=== PATIENT | male | born 1965 | race African-American/Black ===

== ENCOUNTER → 2018-01-22 | Outpatient (CLI) | payer MEDICARE | END | disposition home or self-care (01) | LOC: RAD 11:07 | PROVIDERS: ATTEND Internal Medicine Nephrology | DX: I51.7 Cardiomegaly (principal) | CPT/HCPCS: 71046 ==

== ENCOUNTER → 2018-10-31 | Outpatient (CLI) | payer MEDICARE, OTHER | END | disposition home or self-care (01) | LOC: RAD 15:03 | PROVIDERS: ATTEND Internal Medicine Nephrology | DX: S22.32XA Fracture of one rib, left side, initial encounter for closed fracture (principal); I51.7 Cardiomegaly; X58.XXXA Exposure to other specified factors, initial encounter; Y93.89 Activity, other specified; Y92.89 Other specified places as the place of occurrence of the external cause; Y99.8 Other external cause status | CPT/HCPCS: 71101; 73060; 73090 ==

== ENCOUNTER 2019-11-19 16:15 | Inpatient (IN) | payer MEDICAID, MEDICARE ==
[~2019-11-19] VITALS: Ht 175.3 cm; Wt 96.4 kg
[2019-11-19] MEDS ORDERED: SODIUM CHLORIDE 0.9% 500 ML IV ONE (17:14)
[2019-11-19] MEDS ORDERED: NITROGLYCERIN OINT 1GM/INCH UDPKT TD ONE (17:15)
[2019-11-19] MEDS ORDERED: ASPIRIN 81MG TABLET PO ONE (17:15)
[2019-11-19 17:38] LABS: EOSINOPHILS % 1.5 % (0.0-5.0); HEMOGLOBIN. 9.5 g/dL (14.0-18.0); LYMPHOCYTES % 21.4 % (20.0-50.0); MEAN CORPUSCULAR HEMOGLOBIN 31.7 pg (28.0-32.0); MEAN CORPUSCULAR VOLUME 93.6 fL (80.0-94.0); MEAN PLATELET VOLUME 7.9 fl (7.4-10.4); MONOCYTES % 8.5 % (2.0-8.0); NEUTROPHILS % 67.6 % (40.0-76.0); PLATELET 305 x1000/uL (130-400); RED BLOOD CELL COUNT 2.99 mill/uL (4.7-6.1); RED CELL DISTRIBUTION WIDTH 17.1 % (11.6-14.6)
[2019-11-19 17:45] LABS: CHLORIDE 96 mEq/L (98-107)
[2019-11-19 17:46] LABS: PROTHROMBIN TIME 10.7 sec (9.6-11.0)
[2019-11-19] MEDS ORDERED: ACETAMINOPHEN 325MG TABLET PO PRN (22:30)
[2019-11-19] MEDS ORDERED: DIPHENHYDRAMINE 50MG/ML VIAL IV PRN (22:30)
[2019-11-19] MEDS ORDERED: GUAIFENESIN 200MG/10ML SUGAR FREE UDC PO PRN (22:30)
[2019-11-19] MEDS ORDERED: ALPRAZOLAM 0.25 MG TABLET PO PRN (22:30)
[2019-11-19] MEDS ORDERED: CLONIDINE 0.1MG TABLET PO PRN (22:30)
[2019-11-19] MEDS ORDERED: FOLI1TAB63 MT (22:45)
[2019-11-19] MEDS ORDERED: OMEP20CA14 MT (22:45)
[2019-11-19] MEDS ORDERED: CARV25TA47 MT (22:45)
[2019-11-19] MEDS ORDERED: ALLO300T2 MT (22:45)
[2019-11-19] MEDS ORDERED: FURO20TA4 MT (22:45)
[2019-11-19] MEDS ORDERED: NIFE20CA MT (22:45)
[2019-11-19] MEDS ORDERED: ZOLP10TA2 PO (22:45)
[2019-11-19] MEDS ORDERED: ATOR10TA69 MT (22:45)
[2019-11-19] MEDS: ENOXAPARIN 30MG/0.3ML SYR SUBCUT SCH (23:13)
[2019-11-20 04:56] LABS: BASOPHILS % 1.5 % (0.0-2.0); EOSINOPHILS % 2.1 % (0.0-5.0); HEMATOCRIT. 25.4 % (42.0-52.0); HEMOGLOBIN. 8.6 g/dL (14.0-18.0); LYMPHOCYTES % 21.4 % (20.0-50.0); MEAN CORPUSCULAR HEMOGLOBIN 31.4 pg (28.0-32.0); MEAN CORPUSCULAR VOLUME 92.9 fL (80.0-94.0); MEAN PLATELET VOLUME 7.5 fl (7.4-10.4); MONOCYTES % 7.5 % (2.0-8.0); NEUTROPHILS % 67.5 % (40.0-76.0); PLATELET 267 x1000/uL (130-400); RED BLOOD CELL COUNT 2.74 mill/uL (4.7-6.1); RED CELL DISTRIBUTION WIDTH 17.3 % (11.6-14.6)
[2019-11-20 05:05] LABS: CHLORIDE 98 mEq/L (98-107)
[2019-11-20 05:16] LABS: CREATINE KINASE 160 IU/L (39-308)
[2019-11-20 05:19] LABS: CREATINE KINASE MB FRACTION 1.2 ng/mL (0.5-3.6)
[2019-11-20 08:30] VITALS: BP 154/90
[2019-11-20] MEDS: OMEPRAZOLE 20MG CAPSULE EXTENDED RELEASE PO SCH (09:41)
[2019-11-20] MEDS: ALLOPURINOL 100 MG TABLET PO SCH (09:41)
[2019-11-20] MEDS: SERTRALINE HCL 50MG TABLET PO SCH (09:42)
[2019-11-20] MEDS: CINACALCET HCL 30MG TABLET PO SCH (09:42)
[2019-11-20] MEDS: NIFEDIPINE XL 30MG TAB PO SCH (09:46)
[2019-11-20] MEDS: CARVEDILOL 12.5MG TABLET PO SCH ×2 (09:47→21:50)
[2019-11-20] MEDS ORDERED: POTASSIUM CHLORIDE 10MEQ TABLET SR PO NR (11:15)
[2019-11-20 12:00] VITALS: BP 160/100
[2019-11-20 16:20] LABS: PHOSPHORUS 4.4 mg/dL (2.5-4.9)
[2019-11-20 16:25] LABS: CREATINE KINASE MB FRACTION 1.7 ng/mL (0.5-3.6)
[2019-11-20 20:00] VITALS: BP 153/93
[2019-11-20] MEDS: ENOXAPARIN 30MG/0.3ML SYR SUBCUT SCH (21:49)
[2019-11-20] MEDS: ATORVASTATIN CALCIUM 10MG TABLET PO SCH (21:50)
[2019-11-21] VITALS: BP 149/85
[2019-11-21] MEDS: ONDANSETRON HCL 4MG/2ML INJ IV PRN ×3 (00:42→22:45)
[2019-11-21 04:00] VITALS: BP 136/78
[2019-11-21] MEDS: OMEPRAZOLE 20MG CAPSULE EXTENDED RELEASE PO SCH (06:35)
[2019-11-21 07:17] LABS: BASOPHILS % 0.9 % (0.0-2.0); EOSINOPHILS % 3.2 % (0.0-5.0); HEMATOCRIT. 25.5 % (42.0-52.0); HEMOGLOBIN. 8.6 g/dL (14.0-18.0); LYMPHOCYTES % 20.5 % (20.0-50.0); MEAN CORPUSCULAR HEMOGLOBIN 31.6 pg (28.0-32.0); MEAN CORPUSCULAR VOLUME 93.6 fL (80.0-94.0); MEAN PLATELET VOLUME 7.9 fl (7.4-10.4); MONOCYTES % 9.9 % (2.0-8.0); NEUTROPHILS % 65.5 % (40.0-76.0); PLATELET 258 x1000/uL (130-400); RED BLOOD CELL COUNT 2.73 mill/uL (4.7-6.1); RED CELL DISTRIBUTION WIDTH 17.5 % (11.6-14.6)
[2019-11-21 08:00] VITALS: BP 150/92
[2019-11-21] MEDS: CARVEDILOL 12.5MG TABLET PO SCH ×2 (08:49→21:05)
[2019-11-21] MEDS: NIFEDIPINE XL 30MG TAB PO SCH (08:50)
[2019-11-21] MEDS: CINACALCET HCL 30MG TABLET PO SCH (08:50)
[2019-11-21] MEDS: SERTRALINE HCL 50MG TABLET PO SCH (08:50)
[2019-11-21] MEDS: ALLOPURINOL 100 MG TABLET PO SCH (08:50)
[2019-11-21] MEDS ORDERED: POTASSIUM CHLORIDE 20MEQ TABLET SR PO SCH (11:00)
[2019-11-21 11:14] LABS: *AMPHETAMINES SCREEN URINE NEGATIVE (NEGATIVE); *BARBITURATES SCREEN URINE NEGATIVE (NEGATIVE); *BENZODIAZEPINES SCREEN URINE NEGATIVE (NEGATIVE)
[2019-11-21 11:16] LABS: *COCAINE SCREEN URINE NEGATIVE (NEGATIVE)
[2019-11-21 11:19] LABS: METHADONE URINE SCREEN NEGATIVE (NEGATIVE); OPIATES URINE SCREEN NEGATIVE (NEGATIVE)
[2019-11-21 11:20] LABS: CANNABINOID URINE SCREEN NEGATIVE (NEGATIVE); PHENCYCLIDINE URINE SCREEN NEGATIVE (NEGATIVE)
[2019-11-21 12:00] VITALS: BP 126/73
[2019-11-21 16:00] VITALS: BP 123/81
[2019-11-21 20:00] VITALS: BP 153/81
[2019-11-21] MEDS: ATORVASTATIN CALCIUM 10MG TABLET PO SCH (21:05)
[2019-11-21] MEDS: ENOXAPARIN 30MG/0.3ML SYR SUBCUT SCH (21:05)
[2019-11-22] VITALS: BP 159/82
[2019-11-22 04:00] VITALS: BP 140/90
[2019-11-22 07:00] LABS: BASOPHILS % 0.8 % (0.0-2.0); EOSINOPHILS % 2.2 % (0.0-5.0); HEMATOCRIT. 25.6 % (42.0-52.0); HEMOGLOBIN. 8.6 g/dL (14.0-18.0); LYMPHOCYTES % 18.2 % (20.0-50.0); MEAN CORPUSCULAR HEMOGLOBIN 31.3 pg (28.0-32.0); MEAN CORPUSCULAR VOLUME 93.7 fL (80.0-94.0); MEAN PLATELET VOLUME 7.7 fl (7.4-10.4); MONOCYTES % 10.6 % (2.0-8.0); NEUTROPHILS % 68.2 % (40.0-76.0); PLATELET 277 x1000/uL (130-400); RED BLOOD CELL COUNT 2.73 mill/uL (4.7-6.1); RED CELL DISTRIBUTION WIDTH 16.9 % (11.6-14.6)
[2019-11-22 08:00] VITALS: BP 138/79
[2019-11-22] MEDS: NIFEDIPINE XL 30MG TAB PO SCH ×2 (09:00→11:44)
[2019-11-22] MEDS: FAMOTIDINE 20MG TABLET PO SCH ×2 (09:00→11:43)
[2019-11-22] MEDS: CINACALCET HCL 30MG TABLET PO SCH ×2 (09:00→11:42)
[2019-11-22] MEDS: SERTRALINE HCL 50MG TABLET PO SCH ×2 (09:00→11:44)
[2019-11-22] MEDS: CARVEDILOL 12.5MG TABLET PO SCH ×3 (09:00→20:59)
[2019-11-22] MEDS: ALLOPURINOL 100 MG TABLET PO SCH ×2 (09:00→11:42)
[2019-11-22] MEDS ORDERED: POTASSIUM CHLORIDE 20MEQ TABLET SR PO NR (09:15)
[2019-11-22 12:00] VITALS: BP 142/92
[2019-11-22] MEDS ORDERED: ALPRAZOLAM 0.5 MG TABLET PO PRN (14:46)
[2019-11-22] MEDS: ONDANSETRON HCL 4MG/2ML INJ IV PRN ×2 (15:55→20:59)
[2019-11-22 16:00] VITALS: BP 144/80
[2019-11-22 20:16] VITALS: BP 139/79
[2019-11-22] MEDS: ATORVASTATIN CALCIUM 10MG TABLET PO SCH (20:59)
[2019-11-22] MEDS ORDERED: [UNRECOGNIZED DRUG - OTHER] HE SCH (21:00)
[2019-11-22] MEDS ORDERED: CEFTAZIDIME PENTAHYDRATE HE SCH (21:00)
[2019-11-22] MEDS ORDERED: VANCOMYCIN HE SCH (21:00)
[2019-11-22] MEDS: ENOXAPARIN 30MG/0.3ML SYR SUBCUT SCH (21:04)
[2019-11-23 00:53] VITALS: BP 133/77
[2019-11-23 04:24] VITALS: BP 146/80
[2019-11-23 07:03] LABS: BASOPHILS % 0.7 % (0.0-2.0); EOSINOPHILS % 2.1 % (0.0-5.0); HEMATOCRIT. 24.9 % (42.0-52.0); HEMOGLOBIN. 8.5 g/dL (14.0-18.0); LYMPHOCYTES % 19.5 % (20.0-50.0); MEAN CORPUSCULAR VOLUME 93.5 fL (80.0-94.0); MEAN PLATELET VOLUME 7.5 fl (7.4-10.4); MONOCYTES % 9.4 % (2.0-8.0); NEUTROPHILS % 68.3 % (40.0-76.0); PLATELET 262 x1000/uL (130-400); RED BLOOD CELL COUNT 2.66 mill/uL (4.7-6.1); RED CELL DISTRIBUTION WIDTH 17.2 % (11.6-14.6)
[2019-11-23 08:33] VITALS: BP 139/81
[2019-11-23] MEDS: NIFEDIPINE XL 30MG TAB PO SCH (09:11)
[2019-11-23] MEDS: SERTRALINE HCL 50MG TABLET PO SCH (09:11)
[2019-11-23] MEDS: ALLOPURINOL 100 MG TABLET PO SCH (09:11)
[2019-11-23] MEDS: CARVEDILOL 12.5MG TABLET PO SCH (09:11)
[2019-11-23] MEDS: CINACALCET HCL 30MG TABLET PO SCH (09:11)
[2019-11-23] MEDS: FAMOTIDINE 20MG TABLET PO SCH (09:11)
[2019-11-23] MEDS ORDERED: POTASSIUM CHLORIDE 20MEQ TABLET SR PO SCH (10:15)
[2019-11-23] MEDS ORDERED: TOPUD PO (11:32)
[2019-11-23] MEDS ORDERED: SERT50TA PO (11:32)
[2019-11-23] MEDS ORDERED: POTA20TA82 PO (11:32)
[2019-11-23 12:00] VITALS: BP 135/70
== END 2019-11-23 14:25 | disposition home or self-care (01) | DRG 371 ==
LOC: ER 16:22 → MICUSO 19:14 → EDBEDREQ 19:37 → EDBEDREQTM 19:37 → 6WST 11-20 07:25
PROVIDERS: ADMIT Family Medicine Adult Medicine; ATTEND Family Medicine Adult Medicine
PROC: 3E1M39Z Irrigation of Peritoneal Cavity using Dialysate, Percutaneous Approach (ICD-10-PCS; principal; 2019-11-22)
DX: K65.9 Peritonitis, unspecified (principal); N18.6 End stage renal disease; I12.0 Hypertensive chronic kidney disease with stage 5 chronic kidney disease or end stage renal disease; E46 Unspecified protein-calorie malnutrition; E87.1 Hypo-osmolality and hyponatremia; I31.3 Pericardial effusion (noninflammatory); E86.0 Dehydration; E87.6 Hypokalemia; D63.1 Anemia in chronic kidney disease; R07.89 Other chest pain; F19.10 Other psychoactive substance abuse, uncomplicated; G47.00 Insomnia, unspecified; F41.9 Anxiety disorder, unspecified; M10.9 Gout, unspecified; Z99.2 Dependence on renal dialysis; Z82.49 Family history of ischemic heart disease and other diseases of the circulatory system; Z91.19 Patient's noncompliance with other medical treatment and regimen; Z79.899 Other long term (current) drug therapy
CPT/HCPCS: 36415; 71045; 80048; 80053; 80061; 80305; 82550; 82553; 83540; 83550; 83735; 83880; 84100; 84484; 85025; 93005; 93306; 93970; 99285; J0713; J1650; J2405; J3370; J7040

== ENCOUNTER 2024-05-02 14:09 | Emergency (ER) | payer MEDICARE ==
[~2024-05-02] VITALS: Ht 175.3 cm; Wt 89.8 kg
[~2024-05-02 14:09] MED LIST: ALLO300T2 MT; ATOR10TA69 MT; CARV25TA47 MT; FOLI1TAB63 MT; FURO20TA4 MT; NIFE20CA8 MT; OMEP20CA14 MT; POTA-204 PO; SERT50TA PO; TOPUD PO
[2024-05-02 14:15] VITALS: O2SAT 99
[2024-05-02 14:23] VITALS: BP 121/75; PULSE 74; RESP 18; TEMP 99.5; O2SAT 100
[2024-05-02 15:13] LABS: EOSINOPHILS % 3.9 % (0.0-5.0); HEMATOCRIT. 23.6 % (42.0-52.0); HEMOGLOBIN. 8.3 g/dL (14.0-18.0); LYMPHOCYTES % 13.5 % (20.0-50.0); MEAN CORPUSCULAR HEMOGLOBIN 34.3 pg (28.0-32.0); MEAN CORPUSCULAR HGB CONC 35.2 g/dL (31.0-37.0); MEAN CORPUSCULAR VOLUME 97.3 fL (80.0-94.0); MEAN PLATELET VOLUME 7.2 fl (7.4-10.4); MONOCYTES % 5.2 % (2.0-8.0); NEUTROPHILS % 76.4 % (40.0-76.0); PLATELET 337 x1000/uL (130-400); RED BLOOD CELL COUNT 2.43 mill/uL (4.7-6.1); RED CELL DISTRIBUTION WIDTH 13.6 % (11.6-14.6); WHITE BLOOD COUNT 8.2 x1000/uL (4.5-11.0)
[2024-05-02 15:15] LABS: POTASSIUM 3.7 mEq/L (3.5-5.1)
[2024-05-02 15:17] LABS: CALCIUM 10.1 mg/dL (8.7-10.4)
[2024-05-02 15:22] LABS: CREATININE 4.8 mg/dL (0.6-1.3)
[2024-05-02 22:05] LABS: PROTHROMBIN TIME 11.5 sec (9.6-11.0)
== END 2024-05-02 22:59 | disposition left against medical advice (07) ==
LOC: ER 14:09
DX: T80.211A Bloodstream infection due to central venous catheter, initial encounter (principal); N28.9 Disorder of kidney and ureter, unspecified; Z99.2 Dependence on renal dialysis; Z98.890 Other specified postprocedural states; Z53.21 Procedure and treatment not carried out due to patient leaving prior to being seen by health care provider; Y92.89 Other specified places as the place of occurrence of the external cause
CPT/HCPCS: 36415; 80048; 85025; 86850; 86900